=== PATIENT | male | born 1980 ===

== ENCOUNTER 2019-11-03 09:44 | Emergency (ER) | payer SELFPAY ==
[2019-11-03 09:53] VITALS: BP 136/88
--- NOTE | 2019-11-03 13:01 | Emergency Department Report ---
ED Dizziness HPI - General Chief Complaint: Headache Stated Complaint: DIZZY/HEADACHE/NAUSEA/VOMITING Time Seen by Provider: 11/03/19 12:14 Source: patient Mode of arrival: Ambulatory Limitations: No Limitations - History of Present Illness Initial Comments: 40-year-old -[place] male patient with history of diabetes complains of dizziness and nausea/vomiting 2 days. He describes the dizziness as a room spinning sensation and states it causes him to feel nauseous and vomit. He denies any head injury, vision changes, numbness/tingling/weakness, confusion, congestion, or history of vertigo. He states he has a mild headache and a 1/10 in severity that is intermittent. He denies any hematemesis or coffee-ground emesis, chest pain, or shortness of breath. She states the dizziness worsens with head movement and lifting his body up. MD Complaint: dizziness - Related Data Previous Rx's Medication Instructions Recorded Last Taken Type Cyclobenzaprine [Flexeril 10 MG 10 mg PO TID PRN #30 tablet 07/21/15 Unknown Rx TAB] HYDROcodone/APAP 5-325 [[place] 1 each PO Q6HR PRN #20 tablet 07/21/15 Unknown Rx 5/325] Ibuprofen [Motrin] 600 mg PO Q8H PRN #40 tablet 07/21/15 Unknown Rx Ondansetron [Zofran Odt] 4 mg PO Q8HR PRN #20 tab.rapdis 11/03/19 Unknown Rx dimenhyDRINATE [Dimenhydrinate] 50 mg PO Q4H PRN #15 tablet 11/03/19 Unknown Rx Allergies Allergy/AdvReac Type Severity Reaction Status Date / Time No Known Allergies Allergy Verified 07/21/15 10:09 ED Review of Systems ROS: Stated complaint: DIZZY/HEADACHE/NAUSEA/VOMITING Other details as noted in HPI Comment: All other systems reviewed and negative Neurological: headache. denies: abnormal gait ED Past Medical Hx - Past Medical History Previous Medical History?: Yes Hx Hypertension: Yes Hx Diabetes: Yes - Surgical History Past Surgical History?: No - Social History Smoking Status: Never Smoker Substance Use Type: None - Medications Home Medications: Home Medications Medication Instructions Recorded Confirmed Last Taken Type Cyclobenzaprine [Flexeril 10 MG 10 mg PO TID PRN #30 tablet 07/21/15 Unknown Rx TAB] HYDROcodone/APAP 5-325 [[place] 1 each PO Q6HR PRN #20 tablet 07/21/15 Unknown Rx 5/325] Ibuprofen [Motrin] 600 mg PO Q8H PRN #40 tablet 07/21/15 Unknown Rx Ondansetron [Zofran Odt] 4 mg PO Q8HR PRN #20 tab.rapdis 11/03/19 Unknown Rx dimenhyDRINATE [Dimenhydrinate] 50 mg PO Q4H PRN #15 tablet 11/03/19 Unknown Rx ED Physical Exam - General Limitations: No Limitations General appearance: alert, in no apparent distress - Head Head exam: Present: atraumatic, normocephalic - Eye Eye exam: Present: normal appearance, PERRL, EOMI. Absent: scleral icterus - ENT ENT exam: Present: normal orophraynx, mucous membranes moist - Neck Neck exam: Present: normal inspection - Respiratory Respiratory exam: Present: normal lung sounds bilaterally. Absent: respiratory distress - Cardiovascular Cardiovascular Exam: Present: regular rate, normal rhythm. Absent: systolic murmur, diastolic murmur, rubs, gallop - GI/Abdominal GI/Abdominal exam: Present: soft - Extremities Exam Extremities exam: Present: normal inspection, full ROM - Back Exam Back exam: Present: normal inspection - Neurological Exam Neurological exam: Present: alert, oriented X3, CN II-XII intact, normal gait. Absent: motor sensory deficit - Expanded Neurological Exam Expanded Cerebellar function: Finger to Nose: Normal, Heel to [place]: Normal, Romberg: Normal Sensory exam: Upper Extremity Light Touch: Normal, Lower Extremity Light Touch: Normal Motor strength exam: RUE: 5, LUE: 5, RLE: 5, LLE: 5 - Psychiatric Psychiatric exam: Present: normal affect, normal mood - Skin Skin exam: Present: warm, dry, intact, normal color. Absent: rash ED Course Vital Signs 11/03/19 09:52 Temperature 98.5 F Pulse Rate 84 Respiratory 16 Rate Blood Pressure 136/88 O2 Sat by Pulse 100 Oximetry ED Medical Decision Making - Lab Data Result diagrams: 11/03/19 13:20 11/03/19 13:20 Lab Results 11/03/19 11/03/19 11/03/19 Range/Units 10:04 13:20 13:20 WBC 5.2 (4.5-11.0) K/mm3 RBC 5.29 H (3.65-5.03) M/mm3 Hgb 14.2 (11.8-15.2) gm/dl Hct 44.0 (35.5-45.6) % MCV 83 L (84-94) fl MCH 27 L (28-32) pg MCHC 32 (32-34) % RDW 13.0 L (13.2-15.2) % Plt Count 192 (140-440) K/mm3 Lymph % (Auto) 31.4 (13.4-35.0) % [place] % (Auto) 7.0 (0.0-7.3) % Eos % (Auto) 3.0 (0.0-4.3) % Baso % (Auto) 0.3 (0.0-1.8) % Lymph # 1.6 (1.2-5.4) K/mm3 [place] # 0.4 (0.0-0.8) K/mm3 Eos # 0.2 (0.0-0.4) K/mm3 Baso # 0.0 (0.0-0.1) K/mm3 Seg Neutrophils % 58.3 (40.0-70.0) % Seg Neutrophils # 3.0 (1.8-7.7) K/mm3 Sodium 138 (137-145) mmol/L Potassium 4.2 (3.6-5.0) mmol/L Chloride 97.3 L (98-107) mmol/L Carbon Dioxide 27 (22-30) mmol/L Anion Gap 18 mmol/L BUN 11 (9-20) mg/dL Creatinine 0.8 (0.8-1.5) mg/dL Estimated GFR > 60 ml/min BUN/Creatinine Ratio 14 % Glucose 208 H (75-100) mg/dL POC Glucose 140 H (70-105) Calcium 9.7 (8.4-10.2) mg/dL Total Bilirubin 0.60 (0.1-1.2) mg/dL AST 25 (5-40) units/L ALT 22 (7-56) units/L Alkaline Phosphatase 57 (35-129) units/L Troponin T < 0.010 (0.00-0.029) ng/mL Total Protein 7.5 (6.3-8.2) g/dL Albumin 4.0 (3.9-5) g/dL Albumin/Globulin Ratio 1.1 % - Radiology Data Radiology results: report reviewed CT head/brain wo con INDICATION: dizziness. TECHNIQUE: Routine CT head without contrast. All CT scans at this location are performed using CT dose reduction for ALARA by means of automated exposure control. COMPARISON: None. FINDINGS: BRAIN / INTRACRANIAL CONTENTS: No acute hemorrhage, mass effect, midline shift, or hydrocephalus. No appreciable acute large territorial or lacunar infarct. No chronic infarct or focal atrophy. Normal brain volume and ventricular/sulcal size for age. ORBITS: No significant abnormality of visualized orbits. SINUSES / MASTOIDS: There is mild mucosal thickening in the bilateral maxillary sinuses and ethmoid air cells without air-fluid levels. ADDITIONAL FINDINGS: None. IMPRESSION: 1. No acute intracranial abnormality. - Medical Decision Making 40-year-old -[place] male patient with history of diabetes complains of dizziness and nausea/vomiting 2 days. He describes the dizziness as a room spinning sensation and states it causes him to feel nauseous and vomit. CT head is normal. Vitals are normal. Patient denies any red flag symptoms. Neuro exam is normal. Symptoms mildly improved with meclizine and Zofran, but now he states symptoms are resolved with Valium. Patient states he does not wish to stay and wait for his orthostatic vital signs to be taken. An anion gap was at 17 on labs. No other acute abnormalities noted on labs. Patient is stable for discharge home. Recommend patient rehydrated with Pedialyte and increased water intake. Also recommend patient follow up with neurology within 2-3 days. Discussed strict return precautions and great detail with patient who verbalizes understanding. Critical care attestation.: If time is entered above; I have spent that time in minutes in the direct care o f this critically ill patient, excluding procedure time. ED Disposition Clinical Impression: Vertigo Disposition: DC-01 TO HOME OR SELFCARE Is pt being admited?: No Condition: Stable Instructions: Vertigo (ED) Prescriptions: dimenhyDRINATE [Dimenhydrinate] 50 mg PO Q4H PRN #15 tablet PRN Reason: dizziness Ondansetron [Zofran Odt] 4 mg PO Q8HR PRN #20 tab.rapdis PRN Reason: Nausea Referrals: MARISELA ELIZABETH MD [Referring] - 2-3 Days
[2019-11-03] MEDS ORDERED: MECLIZINE 25 MG TAB PO ONE (13:17)
[2019-11-03] MEDS ORDERED: ONDANSETRON 4 MG ODT TAB PO ONE (13:17)
[2019-11-03 13:39] LABS: Basophils % (Auto) 0.3 % (0.0-1.8); Eosinophils # (Auto) 0.2 K/mm3 (0.0-0.4); Hemoglobin 14.2 gm/dl (11.8-15.2); Lymphocytes # (Auto) 1.6 K/mm3 (1.2-5.4); Lymphocytes % (Auto) 31.4 % (13.4-35.0); Mean Corpuscular HGB Conc 32 % (32-34); Mean Corpuscular Volume 83 fl (84-94); Monocytes # (Auto) 0.4 K/mm3 (0.0-0.8); Platelet Count 192 K/mm3 (140-440); Red Blood Count 5.29 M/mm3 (3.65-5.03)
[2019-11-03 14:05] LABS: Alanine Aminotransferase 22 units/L (7-56); BUN/Creatinine Ratio 14; Blood Urea Nitrogen 11 mg/dL (9-20); Calcium 9.7 mg/dL (8.4-10.2); Hemolysis Index 11
--- NOTE | 2019-11-03 14:08 | Cat Scan Report ---
CT head/brain wo con INDICATION: dizziness. TECHNIQUE: Routine CT head without contrast. All CT scans at this location are performed using CT dos e reduction for ALARA by means of automated exposure control. COMPARISON: None. FINDINGS: BRAIN / INTRACRANIAL CONTENTS: No acute hemorrhage, mass effect, midline shift, or hydrocephalus. No appreciable acute large territorial or lacunar infarct. No chronic infarct or focal atrophy. Normal b rain volume and ventricular/sulcal size for age. ORBITS: No significant abnormality of visualized orbits. SINUSES / MASTOIDS: There is mild mucosal thickening in the bilateral maxillary sinuses and ethmoid a ir cells without air-fluid levels. ADDITIONAL FINDINGS: None. IMPRESSION: 1. No acute intracranial abnormality. Signer Name: Suleman Chavis MD Signed: 11/03/2019 2:04 PM Workstation Name: [id number]
[2019-11-03] MEDS ORDERED: diazePAM 5 MG TAB PO ONE (15:15)
== END 2019-11-03 17:38 | disposition home or self-care (01) ==
LOC: ED 09:44
DX: R42 Dizziness and giddiness (principal); R11.2 Nausea with vomiting, unspecified; R51 Headache; I10 Essential (primary) hypertension; E11.9 Type 2 diabetes mellitus without complications; Z79.899 Other long term (current) drug therapy
CPT/HCPCS: 36415; 70450; 80053; 82962; 84484; 85025; 93005; 93010; Q0162